=== PATIENT | male | born 1995 | race Caucasian/White ===

== ENCOUNTER 2016-12-24 11:44 | Emergency (ER) | payer OTHER ==
[2016-12-24 11:57] VITALS: BP 123/82
--- NOTE | 2016-12-24 12:53 | EDM.PDOC ---
Scribed by Venus Domingo 12/24/16 1249 for Terry Esposito MD ED HPI Trauma - General Chief Complaint: Lower Extremity Injury/Pain Stated Complaint: LEFT KNEE Time Seen by Provider: 12/24/16 11:55 Source: Reports: Patient, RN, RN notes reviewed History Limitations: Reports: No limitations - History of Present Illness INITIAL COMMENTS - FREE TEXT/NARRATIVE: Complaining of left knee pain/injury sustained during training on . Patient states he twisted his left knee and then it gave out. Since then weight bearing has been painful. Denies any other injury. Symptom Onset Date: 12/24/16 Severity: severe Pain/Injury Location: Reports: lower extremity, left Consciousness: Reports: no loss of consciousness Associated Symptoms: Reports: no other symptoms Allergies/ADRs: Allergies No Known Allergies Allergy (Verified 12/24/16 11:53) Home Medications: Ambulatory Orders . [No Known Home Meds] 12/24/16 [Confirmed 12/24/16] Past Medical History - Past Health History Medical/Surgical History: Denies Medical/Surgical History Musculoskeletal History: Reports: Other (see below) (left knee sprain (in high school).) - Past Surgical History HEENT Surgical History: Reports: Tonsillectomy GI Surgical History: Reports: Appendectomy Social & Family History - Family History Family Medical History: Noncontributory - Tobacco Use Smoking Status *Q: Current Every Day Smoker Years of Tobacco use: 10 Packs/Tins Daily: 1 - Caffeine Use Caffeine Use: Reports: Coffee, Energy drinks - Recreational Drug Use Recreational Drug Use: No Review of Systems - Review of Systems Review Of Systems: ROS reveals no pertinent complaints other than HPI. Trauma Exam - Physical Exam Exam: See Below Exam Limited By: No limitations General Appearance: Reports: alert, WD/WN, no apparent distress Head: Reports: atraumatic, normocephalic Throat/Mouth: Reports: Normal voice Respiratory Exam: Reports: no respiratory distress Cardiovascular: Reports: normal peripheral pulses Extremities: Reports: other (left knee with small effusion, tender at medial and lateral joint knee, mild swelling. No visible bruising or deformity. Acutely tender to palpate the both inferior and superior to the patella. 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, no motor/sensory deficits, alert , normal mood/affect, oriented x 3 Skin: Reports: Normal color Course - Vital Signs Last Recorded V/S: Last Vital Signs Temp 36.9 C 12/24/16 11:53 Pulse 84 12/24/16 11:53 Resp 16 12/24/16 11:53 BP 123/82 12/24/16 11:53 Pulse Ox 97 12/24/16 11:53 - Orders/Labs/Meds Orders: Active Orders 24 hr Category Date Time Status Immobilizer [RC] ASDIRECTED Care 12/24/16 12:42 Active DME for Discharge [COMM] Routine Oth 12/24/16 12:43 Ordered - Radiology Interpretation Free Text/Narrative:: Left knee x-ray: Mild suprapatellar soft tissue fullness suggesting effusion and /or synovial hypertrophy. No acute fracture or dislocation identified per rad report. Departure - Departure Time of Disposition: 12:42 Disposition: Home, Self-Care 01 Condition: fair Clinical Impression: Internal derangement of knee, Work related injury Instructions: Knee Effusion, [id number], Knee Sprain, [id number] Forms: ED Department Discharge Additional Instructions: Motrin 800mg. Tramadol 50mg. Knee immobilizer and crutches up to 7-10 days. Rest, ice, and elevate left knee. Follow up with orthopedic surgeon for a recheck and further evaluation in 7-10 days. - My Orders Last 24 Hours: My Active Orders 12/24/16 12:42 Immobilizer [RC] ASDIRECTED 12/24/16 12:43 DME for Discharge [COMM] Routine - Assessment/Plan Last 24 Hours: My Active Orders 12/24/16 12:42 Immobilizer [RC] ASDIRECTED 12/24/16 12:43 DME for Discharge [COMM] Routine I have read and agree with the documentation that has been completed regarding this visit. By signing this record, I attest that the documentation was completed in my physical presence and is an accurate record of the encounter.
== END 2016-12-24 13:07 | disposition home or self-care (01) ==
LOC: DL.ED 11:44
DX: M23.92 Unspecified internal derangement of left knee (principal); M25.462 Effusion, left knee; F17.210 Nicotine dependence, cigarettes, uncomplicated; Z98.890 Other specified postprocedural states; Z90.49 Acquired absence of other specified parts of digestive tract; X50.1XXA Overexertion from prolonged static or awkward postures, initial encounter; Y99.0 Civilian activity done for income or pay
CPT/HCPCS: 73562-LT; 99283

== ENCOUNTER 2024-09-07 18:16 | Emergency (ER) | payer BC ==
[2024-09-07 18:28] VITALS: BP 145/85; PULSE 69
[2024-09-07] MEDS ORDERED: Sodium Chloride 0.9% 10 ML Syringe FLUSH PRN (18:30)
[2024-09-07] MEDS: diphenhydrAMINE 50 MG/ML SDV IVPUSH ONE (18:37)
[2024-09-07] MEDS: Ketorolac 30 MG/ML SDV IVPUSH ONE (18:37)
[2024-09-07] MEDS: Metoclopramide 10 MG/2 ML SDV IVPUSH ONE (18:37)
[2024-09-07] MEDS: Sodium Chloride 0.9% 1,000 ML IV ONE (18:38)
== END 2024-09-07 20:55 | disposition home or self-care (01) ==
LOC: DL.ED 18:16
DX: G43.909 Migraine, unspecified, not intractable, without status migrainosus (principal); Z90.49 Acquired absence of other specified parts of digestive tract
CPT/HCPCS: 70450; 96361; 96374; 96375; 99284; J1200; J1885; J2765; J7030